=== PATIENT | male | born 1940 | race Hispanic/Latino ===

== ENCOUNTER 2018-08-07 15:30 | Inpatient (IN) | payer OTHER ==
[2018-08-07] MEDS ORDERED: NA CHLORIDE 0.9% 1,000 ML ONE (16:40)
[2018-08-07 16:59] LABS: Protime INR 1.16
--- NOTE | 2018-08-07 17:09 | RAD REPORT ---
EXAM DESCRIPTION: RAD - Chest Single View - 08/07/2018 4:58 pm CLINICAL HISTORY: Cough, shortness of breath, fatigue COMPARISON: December 2014 TECHNIQUE: AP portable chest image was obtained 1633 hours . FINDINGS: No peripheral mass or consolidation. No failure or volume overload. Interstitial markings in the right base are fractionally increased over comparison. Patient has a baseline of mild chronic interstitial lung disease. Heart and vasculature are normal. No measurable pleural effusion and no pneumothorax. No acute bony abnormality seen. No acute aortic findings suspected. IMPRESSION: Mild prominence of the interstitial markings in the right base greater than baseline pat tern. Findings are suspicious for a very early interstitial infiltrate.
[2018-08-07 17:10] LABS: Absolute Lymphocytes (CBC) 0.6 K/uL (0.7-4.9); Absolute Monocytes 0.9 K/uL (0.1-1.3); Absolute Neutrophil 10.8 K/uL (1.8-8.0); Basophils % 0.2 % (0-1.3); Hematocrit 40.9 % (39.6-49.0); Lymphocytes % 5.1 % (15.3-44.8); MPV 8.3 fL (7.6-11.3); RBC Red Blood Cell Count 4.42 M/uL (4.33-5.43)
[2018-08-07 17:20] LABS: ALT/SGPT 29 U/L (12-78); AST/SGOT 19 U/L (15-37); Albumin 3.9 g/dL (3.4-5.0); Alkaline Phosphatase 137 U/L (45-117); BUN Blood Urea Nitrogen 23 mg/dL (7-18); Bicarbonate 26 mmol/L (21-32); Bilirubin Direct 0.2 mg/dL (0-0.2); Bilirubin Total 0.9 mg/dL (0.2-1.0); Glucose Level 117 mg/dL (74-106); Lipase 35 U/L (73-393); Magnesium 2.3 mg/dL (1.8-2.4); NT PRO-BNP 674 pg/mL (<450); Potassium 4.1 mmol/L (3.5-5.1); Protein, Total 7.5 g/dL (6.4-8.2); Sodium Level 140 mmol/L (136-145); Troponin (Emerg Dept Use Only) < 0.02 ng/mL (0.0-0.045)
--- NOTE | 2018-08-07 17:33 | ER ---
Nurse's Notes [facility] Name: Kevin Padron Age: 78 yrs Sex: Male : 1940 Arrival Date: 08/07/2018 Time: 15:37 Bed 27 Private MD: Diagnosis: Weakness;Fever, unspecified;Pneumonia due to other specified bacteria;Dementia in other diseases classified elsewhere Presentation: 08/07 16:14 Presenting complaint: Child states: "He didn't want to get up this morning and he's ph been really tired and weak all day." Reports hx of dementia states that pt is usually ambulatory and would not walk today, also reports vomiting and fever, denies diarrhea. Transition of care: patient was not received from another setting of care. Onset of symptoms was August 07, 2018. Risk Assessment: Do you want to hurt yourself or someone else? Patient reports no desire to harm self or others. Care prior to arrival: None. 16:14 Method Of Arrival: Wheelchair ph 16:14 Acuity: LEE 3 ph 20:00 Initial Sepsis Screen: Does the patient meet any 2 criteria? No. Patient's initial mg2 sepsis screen is negative. Does the patient have a suspected source of infection? No. Patient's initial sepsis screen is negative. Historical: - Allergies: 16:08 No Known Allergies; ph - PMHx: 16:08 Alzheimers; ph - PSHx: 16:08 Knee surgery; ph - Immunization history:: Adult Immunizations unknown. - Social history:: Smoking status: Patient/guardian denies using tobacco. - Ebola Screening: : No symptoms or risks identified at this time. - Family history:: not pertinent. Screenin:00 Abuse screen: Denies threats or abuse. Nutritional screening: No deficits noted. tl3 Tuberculosis screening: No symptoms or risk factors identified. Fall Risk Secondary diagnosis (15 points) Alzheimer's. Assessment: 17:00 General: Appears slender, well developed, well nourished, Behavior is calm, restless. tl3 Pain: Unable to use pain scale. Does not appear to understand pain scale. Neuro: Level of Consciousness is awake, alert, Oriented to person. Cardiovascular: Patient's skin is warm and dry. Respiratory: Airway is patent Respiratory effort is even, unlabored, Respiratory pattern is regular, symmetrical. GI: Abdomen is round Parent/caregiver reports the patient having diarrhea, vomiting. : No signs and/or symptoms were reported regarding the genitourinary system. EENT: No signs and/or symptoms were reported regarding the EENT system. Derm: No signs and/or symptoms reported regarding the dermatologic system. Musculoskeletal: No signs and/or symptoms reported regarding the musculoskeletal system. 18:16 Reassessment: No changes from previously documented assessment. Patient and/or family tl3 updated on plan of care and expected duration. Pain level reassessed. Patient is alert, oriented x 3, equal unlabored respirations, skin warm/dry/pink. family report pt is acting like himself now, moving all about. Vital Signs: 16:08 BP 108 / 68; Pulse 86; Resp 16; Temp 98.1; Pulse Ox 99% on R/A; ph 18:16 BP 124 / 78; Pulse 80; Resp 18; Pulse Ox 100% on R/A; tl3 19:29 BP 132 / 53; Pulse 74; Resp 18; Temp 98.5(A); Pulse Ox 99% on R/A; Pain 0/10; mg2 ED Course: 15:37 Patient arrived in ED. mr 16:08 Arm band placed on. ph 16:10 Rahul Wolfe MD is Attending Physician. celia 16:16 Triage completed. ph 16:37 XRAY Chest (1 view) In Process Unspecified. EDMS 16:50 EKG done, by engine test cell technician. reviewed by Rahul Wolfe MD. sm3 17:00 Patient has correct armband on for positive identification. Placed in gown. Bed in low tl3 position. Adult w/ patient. Pulse ox on. NIBP on. 17:00 No provider procedures requiring assistance completed. tl3 17:05 Inserted saline lock: 20 gauge in right forearm, using aseptic technique. Blood mg2 collected. 17:31 Leilani Vidales MD is Hospitalizing Provider. celia 18:10 Ilene Feliciano RN is Primary Nurse. tl3 19:59 Patient admitted, IV remains in place. mg2 Administered Medications: 16:53 Drug: NS 0.9% 1000 ml Route: IV; Rate: 125 ml/hr; Site: right forearm; mg2 19:19 Follow up: Response: No adverse reaction; IV Status: Infusion continued upon admission mg2 17:20 CANCELLED (Duplicate Order): Cefepime 1 grams IVPB at 200 ml/hr once over 30 mins; (mix celia in NS 100 mL) 18:16 Drug: Zosyn 3.375 grams Route: IVPB; Infused Over: 60 mins; Site: right forearm; tl3 Delivery: Primary tubing; 19:19 Follow up: Response: No adverse reaction; IV Status: Completed infusion mg2 Outcome: 17:32 Decision to Hospitalize by Provider. celia 20:00 Admitted to Tele accompanied by tech, via stretcher, room 403, with chart, Report mg2 called to KAVYA Cavazos 20:00 Condition: good 20:00 Instructed on the need for admit, Demonstrated understanding of instructions. 20:11 Patient left the ED. tl3 Signatures: Dispatcher [employer] Rahul Harris MD MD cha Rivera, Cherelle Verma RN RN Ilene Feliciano RN RN tl3 Mahesh Negrete RN RN [facility] [place] Aspen Mendez 3
--- NOTE | 2018-08-07 17:33 | EDPHYS ---
Physician Documentation [facility] Name: Kevin Padron Age: 78 yrs Sex: Male : 1940 Arrival Date: 08/07/2018 Time: 15:37 Bed 27 Private MD: ED Physician Rahul Wolfe HPI: 08/07 17:14 This 78 yrs old Male presents to ER via Wheelchair with complaints of Fever, celia Vomiting. 17:14 The patient reports fever, that was measured at 100 degrees Fahrenheit. Onset: The celia symptoms/episode began/occurred 2 day(s) ago. Modifying factors: there are no obvious modifying factors. Associated signs and symptoms: Pertinent positives:. Severity of symptoms: At their worst the symptoms were mild in the emergency department the symptoms are unchanged. The patient has not experienced similar symptoms in the past. Historical: - Allergies: 16:08 No Known Allergies; ph - PMHx: 16:08 Alzheimers; ph - PSHx: 16:08 Knee surgery; ph - Immunization history:: Adult Immunizations unknown. - Social history:: Smoking status: Patient/guardian denies using tobacco. - Ebola Screening: : No symptoms or risks identified at this time. - Family history:: not pertinent. ROS: 17:14 Eyes: Negative for injury, pain, redness, and discharge, Neck: Negative for injury, celia pain, and swelling, Cardiovascular: Negative for chest pain, palpitations, and edema, Back: Negative for injury and pain, : Negative for injury, bleeding, discharge, and swelling, MS/Extremity: Negative for injury and deformity, Skin: Negative for injury, rash, and discoloration, Psych: Negative for depression, anxiety, suicide ideation, homicidal ideation, and hallucinations, Allergy/Immunology: Negative for hives, rash, and allergies, Endocrine: Negative for neck swelling, polydipsia, polyuria, polyphagia, and marked weight changes, Hematologic/Lymphatic: Negative for swollen nodes, abnormal bleeding, and unusual bruising. 17:14 Constitutional: Positive for fever. 17:14 Respiratory: Positive for cough. 17:14 Abdomen/GI: Positive for nausea and vomiting. 17:14 Neuro: Positive for altered mental status, gait disturbance. Exam: 17:14 Head/Face: Normocephalic, atraumatic. Eyes: Pupils equal round and reactive to light, celia extra-ocular motions intact. Lids and lashes normal. Conjunctiva and sclera are non-icteric and not injected. Cornea within normal limits. Periorbital areas with no swelling, redness, or edema. ENT: Nares patent. No nasal discharge, no septal abnormalities noted. Tympanic membranes are normal and external auditory canals are clear. Oropharynx with no redness, swelling, or masses, exudates, or evidence of obstruction, uvula midline. Mucous membranes moist. Neck: Trachea midline, no thyromegaly or masses palpated, and no cervical lymphadenopathy. Supple, full range of motion without nuchal rigidity, or vertebral point tenderness. No Meningismus. Chest/axilla: Normal chest wall appearance and motion. Nontender with no deformity. No lesions are appreciated. Cardiovascular: Regular rate and rhythm with a normal S1 and S2. No gallops, murmurs, or rubs. Normal PMI, no JVD. No pulse deficits. Respiratory: Lungs have equal breath sounds bilaterally, clear to auscultation and percussion. No rales, rhonchi or wheezes noted. No increased work of breathing, no retractions or nasal flaring. Abdomen/GI: Soft, non-tender, with normal bowel sounds. No distension or tympany. No guarding or rebound. No evidence of tenderness throughout. Back: No spinal tenderness. No costovertebral tenderness. Full range of motion. Skin: Warm, dry with normal turgor. Normal color with no rashes, no lesions, and no evidence of cellulitis. MS/ Extremity: Pulses equal, no cyanosis. Neurovascular intact. Full, normal range of motion. Psych: Awake, alert, with orientation to person, place and time. Behavior, mood, and affect are within normal limits. 17:14 Constitutional: The patient appears febrile. 17:14 Respiratory: the patient does not display signs of respiratory distress, Respirations: normal, Breath sounds: rhonchi, that are mild, are scattered. 17:14 Neuro: Orientation: unable to test, Mentation: confused, Memory: unable to test, Cerebellar function: unable to test, Sensation: unable to test, Gait: not tested. seizure activity, is not displayed by the patient. Vital Signs: 16:08 BP 108 / 68; Pulse 86; Resp 16; Temp 98.1; Pulse Ox 99% on R/A; ph 18:16 BP 124 / 78; Pulse 80; Resp 18; Pulse Ox 100% on R/A; tl3 19:29 BP 132 / 53; Pulse 74; Resp 18; Temp 98.5(A); Pulse Ox 99% on R/A; Pain 0/10; mg2 MDM: 16:10 Patient medically screened. [facility] 17:14 Data reviewed: vital signs, nurses notes, lab test result(s), EKG, radiologic studies, celia plain films. 08/07 16:12 Order name: Basic Metabolic Panel; Complete Time: 17:30 [facility] 08/07 16:12 Order name: CBC with Diff [facility] 08/07 16:12 Order name: LFT's; Complete Time: 17:30 [facility] 08/07 16:12 Order name: Magnesium; Complete Time: 17:30 [facility] 08/07 16:12 Order name: NT PRO-BNP; Complete Time: 17:30 [facility] 08/07 16:12 Order name: PT-INR; Complete Time: 17:30 [facility] 08/07 16:12 Order name: Troponin (emerg Dept Use Only); Complete Time: 17:30 [facility] 08/07 16:12 Order name: Lipase; Complete Time: 17:30 [facility] 08/07 16:12 Order name: Blood Culture Adult (2) [facility] 08/07 16:12 Order name: Urine Culture [facility] 08/07 16:12 Order name: Procalcitonin; Complete Time: 17:30 [facility] 08/07 16:12 Order name: Lactate; Complete Time: 17:30 [facility] 08/07 17:13 Order name: Urine Dipstick--Ancillary (enter results) 08/07 17:14 Order name: Flu [facility] 08/07 16:12 Order name: XRAY Chest (1 view); Complete Time: 17:30 [facility] 08/07 16:12 Order name: EKG; Complete Time: 16:13 [facility] 08/07 16:12 Order name: Cardiac monitoring; Complete Time: 16:53 [facility] 08/07 16:12 Order name: EKG - Nurse/Tech; Complete Time: 16:53 [facility] 08/07 16:12 Order name: IV Saline Lock; Complete Time: 16:53 [facility] 08/07 16:12 Order name: Labs collected and sent; Complete Time: 16:53 [facility] 08/07 16:12 Order name: O2 Per Protocol; Complete Time: 16:53 [facility] 08/07 16:12 Order name: O2 Sat Monitoring; Complete Time: 16:53 [facility] 08/07 16:12 Order name: Urine Dipstick-Ancillary (obtain specimen); Complete Time: 17:05 [facility] 08/07 17:19 Order name: CBC Smear Scan EDMS Administered Medications: 16:53 Drug: NS 0.9% 1000 ml Route: IV; Rate: 125 ml/hr; Site: right forearm; mg2 19:19 Follow up: Response: No adverse reaction; IV Status: Infusion continued upon admission mg2 17:20 CANCELLED (Duplicate Order): Cefepime 1 grams IVPB at 200 ml/hr once over 30 mins; (mix celia in NS 100 mL) 18:16 Drug: Zosyn 3.375 grams Route: IVPB; Infused Over: 60 mins; Site: right forearm; tl3 Delivery: Primary tubing; 19:19 Follow up: Response: No adverse reaction; IV Status: Completed infusion mg2 Disposition: 08/07/18 17:32 Hospitalization ordered by Leilani Vidales for Inpatient Admission. Preliminary diagnosis are Weakness, Fever, unspecified, Pneumonia due to other specified bacteria, Dementia in other diseases classified elsewhere. - Bed requested for Telemetry/MedSurg (Inpatient). - Status is Inpatient Admission. tl3 - Condition is Fair. - Problem is new. - Symptoms have improved. UTI on Admission? No Signatures: Dispatcher [employer] EDMS Jane Irving Corey, MD MD cha Hall, Patricia, RN RN Ilene Feliciano RN RN tl3 Mahesh Negrete RN RN mg2 Corrections: (The following items were deleted from the chart) 17:20 17:14 Cefepime 1 grams IVPB at 200 ml/hr once over 30 mins; (mix in NS 100 mL) ordered. [facility] 18:54 17:32 Hospitalization Ordered by Leilani Vidales MD for Inpatient Admission. Preliminary bd diagnosis is Weakness; Fever, unspecified; Pneumonia due to other specified bacteria; Dementia in other diseases classified elsewhere. Bed requested for Telemetry/MedSurg (Inpatient). Status is Inpatient Admission. Condition is Fair. Problem is new. Symptoms have improved. UTI on Admission? No. [facility] 20:11 18:54 08/07/2018 17:32 Hospitalization Ordered by Leilani Vidales MD for Inpatient tl3 Admission. Preliminary diagnosis is Weakness; Fever, unspecified; Pneumonia due to other specified bacteria; Dementia in other diseases classified elsewhere. Bed requested for Telemetry/MedSurg (Inpatient). Status is Inpatient Admission. Condition is Fair. Problem is new. Symptoms have improved. UTI on Admission? No. bd
[2018-08-07] MEDS ORDERED: PIPER/TAZO/NS 3.375gm 3.375 GM/100 ML BAG ONE (18:19)
[2018-08-07 18:30] LABS: Urine Blood TRACE (NEG); Urine Glucose NEGATIVE (NEG); Urine Protein NEGATIVE (NEG); Urine pH 7.5 (5.0-7.0)
[2018-08-07 18:35] LABS: Blood Morphology Comment NOT SEEN (NOT SEEN); Platelet Estimate ADEQ; Urine White Blood Cell Casts OK
[2018-08-07 20:38] VITALS: BMI 20.7
[2018-08-07] MEDS ORDERED: ONDANSETRON 4 MG/2 ML VIAL IV PRN (21:00)
[2018-08-07] MEDS ORDERED: LORazepam 2 MG/ML VIAL IV ONE (21:33)
[2018-08-07 22:19] LABS: Albumin 3.7 g/dL (3.4-5.0); Bilirubin Total 1.5 mg/dL (0.2-1.0); Potassium 3.8 mmol/L (3.5-5.1); Protein, Total 7.1 g/dL (6.4-8.2)
[2018-08-07] MEDS ORDERED: POTASSIUM CL SA 10 MEQ TAB PO ONE (22:41)
[2018-08-08 05:31] LABS: Absolute Lymphocytes (CBC) 0.7 K/uL (0.7-4.9); Absolute Monocytes 0.8 K/uL (0.1-1.3); Absolute Neutrophil 8.6 K/uL (1.8-8.0); Basophils % 0.4 % (0-1.3); Hematocrit 38.8 % (39.6-49.0); Lymphocytes % 6.7 % (15.3-44.8); MPV 8.6 fL (7.6-11.3); Monocytes % 7.8 % (3.3-12.3); RBC Red Blood Cell Count 4.31 M/uL (4.33-5.43)
[2018-08-08 05:42] LABS: Potassium 3.4 mmol/L (3.5-5.1)
[2018-08-08] MEDS: NA CHLORIDE 0.9% 1,000 ML IV SCH ×3 (06:45→22:10)
[2018-08-08] MEDS: KCL 20 MEQ/100 mL IVPB 20 MEQ/100 ML BAG IV SCH ×2 (06:46→09:06)
[2018-08-08] MEDS ORDERED: NA CHLORIDE 0.9% 1,000 ML ONE (06:50)
--- NOTE | 2018-08-08 06:57 | EKG ---
Test Date: 2018-08-07 Test Time: 16:46:55 Business Services Sales Agent: KENROY MEASUREMENT RESULTS: Intervals: Rate: 78 AR: 142 QRSD: 74 QT: 406 QTc: 462 [place]: P: 78 AR: 142 QRS: 73 T: 55 INTERPRETIVE STATEMENTS: Normal sinus rhythm ST abnormality, possible digitalis effect Abnormal ECG Compared to ECG 04/18/2017 19:39:13 ST (T wave) deviation now present Sinus bradycardia no longer present Electronically Signed On 08-08-18 06:56:05 SAP ARIBA CONSULTANT by Cr Bolaños
[2018-08-08] MEDS ORDERED: PNEUMOCOCCAL VACCINE 0.5 ML IMVAC ONE (08:00)
[2018-08-08] MEDS ORDERED: INFLUENZA VACCINE (for 3y+) 0.5 ML DOSE IMVAC ONE (08:00)
--- NOTE | 2018-08-08 08:44 | RAD REPORT ---
EXAM DESCRIPTION: RAD - Chest Single View - 08/08/2018 8:32 am CLINICAL HISTORY: PNA Chest pain. COMPARISON: Chest Single View dated 08/07/2018; ABDOMEN ACUTE SERIES dated 12/30/2014; CHEST PA AND LA T 2 VIEW dated 03/14/2011; CHEST PA AND LAT 2 VIEW dated 07/13/2008 FINDINGS: Portable technique limits examination quality. The lungs are grossly clear. The heart is normal in size. No displaced fractures. IMPRESSION: No acute intrathoracic process suspected.
[2018-08-08] MEDS: ENOXAPARIN 40 MG/0.4 ML SQ SCH (09:06)
--- NOTE | 2018-08-08 12:16 | P.HP ---
Certification for Inpatient Patient admitted to: Inpatient With expected LOS: >2 Midnights Patient will require the following post-hospital care: None Practitioner: I am a practitioner with admitting privileges, knowledge of patient current condition, hospital course, and medical plan of care. Services: Services provided to patient in accordance with Admission requirements found in Title 42 Section 412.3 of the Code of Federal Regulations Patient History Date of Service: 08/07/18 Reason for admission: SHORTNESS OF BREATH; FEVER History of Present Illness: Patient is a 78-year-old gentleman who came into the hospital with altered mentation. Patient does have dementia however physically he is able to do just about anything he has in the past. However, as far as his mentation he is very forgetful and does not even know his current family members. The family became concerned when physically he was not doing what he normally does. He was having vomiting and he was running fevers. It appeared he may have a stomach virus. He was getting physically more ill so they brought him into the hospital for further evaluation. Patient is not able to really communicate with what is wrong so the family has to guess a lot of times. They were not sure what was going on so they brought him into the emergency room. In the emergency room his workup had a questionable pneumonia. he did have a positive flu test. He has no white count but he does have a fever. His procalcitonin is negative. We will monitor him very closely and hydrate him gently and start him on Tamiflu. Allergies No Known Drug Allergies Allergy (Verified 08/07/18 21:14) Unknown Home Medications: Melatonin 15 mg PO BEDTIME 08/07/18 - Past Medical/Surgical History Has patient received pneumonia vaccine in the past: No Diabetic: No -: Alzheimer's dementia -: Total knee replacement - Family History Father History Unknown: Yes Sister Notes: alzheimers - Social History Smoking Status: Former smoker Alcohol use: No CD- Drugs: No Place of Residence: Home Review of Systems 10-point ROS is otherwise unremarkable Physical Examination - Vital Signs Temperature: 100.7 F Blood Pressure: 149/85 Pulse: 65 Respirations: 20 Pulse Ox (%): 93 - Physical Exam General: Alert, In no apparent distress, Delirious, Other (dementia) HEENT: Atraumatic, PERRLA, Mucous membr. moist/pink, EOMI, Sclerae nonicteric Neck: Supple, 2+ carotid pulse no bruit, No LAD, Without JVD or thyroid abnormality Respiratory: Diminished, Rhonchi/gurgles Cardiovascular: Regular rate/rhythm, Normal S1 S2, Systolic murmur Gastrointestinal: Normal bowel sounds, Soft and benign, Non-distended, No tenderness Musculoskeletal: No clubbing, No swelling, No tenderness Integumentary: No rashes Neurological: Normal speech, Normal tone, Sensation intact, Cranial nerves 3-12 intact, Normal affect, Abnormal strength Lymphatics: No axilla or inguinal lymphadenopathy - Studies Laboratory Data (last 24 hrs) 08/07/18 16:30: PT 13.6 H, INR 1.16 08/07/18 16:30: WBC 12.3 H, Hgb 13.6, Hct 40.9, Plt Count 225 08/07/18 16:30: Sodium 140, Potassium 4.1, BUN 23 H, Creatinine 0.88, Glucose 117 H, Magnesium 2.3, Total Bilirubin 0.9, AST 19, ALT 29, Alkaline Phosphatase 137 H, Lipase 35 L Assessment & Plan - Problems (Diagnosis) (1) Influenza A with pneumonia Current Visit: Yes Status: Acute (2) Fever Current Visit: Yes Status: Acute (3) Nausea Current Visit: Yes Status: Acute (4) Alzheimer's dementia Current Visit: Yes Status: Acute - Plan Plan: 1. Continue with antivirals 2. Repeat chest x-ray in AM 3. Continue with nebs as needed 4. O2 per protocol 5. Respiratory isolation 6. Continue with gentle hydration 7. Repeat labs including CBC and renal function in a.m. 8. GI and DVT prophylaxis Discharge Plan: Home Plan to discharge in: Greater than 2 days - Advance Directives Does patient have a Living Will: No Does patient have a Durable POA for Healthcare: No - Code Status/Comfort Care Code Status Assessed: Yes Code Status: Full Code Critical Care: No Time Spent Managing PTS Care (In Minutes): 45
[2018-08-08] MEDS: OSELTAMIVIR 75 MG CAP PO SCH ×2 (12:44→22:11)
[2018-08-08] MEDS: ACETAMINOPHEN 325 MG TABLET PO PRN (17:33)
--- NOTE | 2018-08-08 18:02 | P.PN ---
Subjective Date of Service: 08/08/18 Chief Complaint: SHORTNESS OF BREATH; FEVER Subjective: No C/O voiced Review of Systems 10-point ROS is otherwise unremarkable Physical Examination - Vital Signs Temperature: 100.7 F Blood Pressure: 149/85 Pulse: 65 Respirations: 20 Pulse Ox (%): 93 - Physical Exam General: Alert, In no apparent distress HEENT: Atraumatic, PERRLA, EOMI Neck: Supple, JVD not distended Respiratory: Clear to auscultation bilaterally, Normal air movement Cardiovascular: Regular rate/rhythm, Normal S1 S2 Gastrointestinal: Normal bowel sounds, No tenderness Musculoskeletal: No tenderness Integumentary: No rashes Neurological: Normal speech, Normal tone, Normal affect Lymphatics: No axilla or inguinal lymphadenopathy Assessment And Plan - Plan Influenza A with pneumonia Fever Nausea Alzheimer's dementia 1. Continue with antivirals 2. Continue with nebs as needed 3. O2 per protocol 4. Respiratory isolation 5. Continue with gentle hydration 6. Repeat labs including CBC and renal function in a.m. 7. GI and DVT prophylaxis
[2018-08-08] MEDS ORDERED: KCL 20 MEQ/100 mL IVPB 20 MEQ/100 ML BAG IV SCH (19:00)
[2018-08-09] MEDS: NA CHLORIDE 0.9% 1,000 ML IV SCH ×3 (03:00→19:48)
[2018-08-09 04:26] LABS: BUN Blood Urea Nitrogen 21 mg/dL (7-18); Bicarbonate 23 mmol/L (21-32); Glucose Level 128 mg/dL (74-106); Potassium 3.7 mmol/L (3.5-5.1); Sodium Level 139 mmol/L (136-145)
[2018-08-09] MEDS: ACETAMINOPHEN 325 MG TABLET PO PRN ×2 (05:37→10:54)
[2018-08-09] MEDS ORDERED: KCL 20 MEQ/100 mL IVPB 20 MEQ/100 ML BAG IV SCH (08:00)
[2018-08-09] MEDS: ENOXAPARIN 40 MG/0.4 ML SQ SCH (09:11)
[2018-08-09] MEDS: OSELTAMIVIR 75 MG CAP PO SCH ×2 (09:11→20:00)
--- NOTE | 2018-08-09 14:57 | P.PN ---
Subjective Date of Service: 08/09/18 Chief Complaint: SHORTNESS OF BREATH; FEVER Subjective: No new changes Patient seen and examined at bedside. Daughter at bedside. Chart reviewed and case discussed with nursing staff. Patient nonverbal at baseline. Seems to be more drowsy this morning. Per daughter, he does have dementia. He does not see a doctor for his dementia, is on no medications for dementia. Review of Systems is unable to be obtained Physical Examination - Vital Signs Temperature: 99.2 F Blood Pressure: 108/53 Pulse: 73 Respirations: 20 Pulse Ox (%): 94 - Physical Exam General: In no apparent distress, Confused, Other (Very sleepy, grimaces with pain, not really want to open his eyes) HEENT: Atraumatic, PERRLA, EOMI Neck: Supple, JVD not distended Respiratory: Clear to auscultation bilaterally, Normal air movement Cardiovascular: Regular rate/rhythm, Normal S1 S2 Gastrointestinal: Normal bowel sounds, No tenderness Musculoskeletal: No tenderness Integumentary: No rashes Neurological: Normal speech, Normal tone, Normal affect Lymphatics: No axilla or inguinal lymphadenopathy Assessment And Plan - Plan Influenza A with pneumonia Fever Nausea Alzheimer's dementia, advanced Positive preliminary blood cultures 1. Continue with antivirals. Fever curve improving 2. Continue with nebs as needed 3. O2 per protocol 4. Respiratory isolation 5. Continue with gentle hydration 6. Repeat labs including CBC and renal function in a.m. 7. Follow up blood cultures 8. If condition is not improved, may proceed with MRI/per protocol. Sleepiness this likely secondary to fever/influenza on top of his underlying dementia. Will continue to monitor. 9. The patient may need outpatient follow up for dementia. 10. GI and DVT prophylaxis
[2018-08-10] MEDS: NA CHLORIDE 0.9% 1,000 ML IV SCH ×2 (03:49→17:02)
[2018-08-10 06:45] LABS: BUN Blood Urea Nitrogen 11 mg/dL (7-18); Bicarbonate 23 mmol/L (21-32); Glucose Level 128 mg/dL (74-106); Potassium 3.4 mmol/L (3.5-5.1); Sodium Level 142 mmol/L (136-145)
[2018-08-10] MEDS: ENOXAPARIN 40 MG/0.4 ML SQ SCH (08:46)
[2018-08-10] MEDS: OSELTAMIVIR 75 MG CAP PO SCH ×2 (08:47→21:29)
[2018-08-10] MEDS: KCL 20 MEQ/100 mL IVPB 20 MEQ/100 ML BAG IV SCH ×2 (09:30→11:52)
--- NOTE | 2018-08-10 11:48 | P.PN ---
Subjective Date of Service: 08/10/18 Primary Care Provider: Dr. Gino de jesus Chief Complaint: SHORTNESS OF BREATH; FEVER Subjective: Improving Patient seen and examined at bedside. Daughter at bedside. Chart reviewed and case discussed with nursing staff. Patient nonverbal at baseline. Seems to be more closer to baseline. Per daughter, he does have dementia. He does not see a doctor for his dementia, is on no medications for dementia. Review of Systems 10-point ROS is otherwise unremarkable Physical Examination - Vital Signs Temperature: 99.4 F Blood Pressure: 135/63 Pulse: 70 Respirations: 16 Pulse Ox (%): 96 - Physical Exam General: In no apparent distress, Demented HEENT: Atraumatic, PERRLA, EOMI Neck: Supple, JVD not distended Respiratory: Clear to auscultation bilaterally, Normal air movement Cardiovascular: Regular rate/rhythm, Normal S1 S2 Gastrointestinal: Normal bowel sounds, No tenderness Musculoskeletal: No tenderness Integumentary: No rashes Neurological: Normal speech, Normal tone, Normal affect Lymphatics: No axilla or inguinal lymphadenopathy Assessment And Plan - Plan Influenza A with pneumonia Fever Nausea Alzheimer's dementia, advanced Positive preliminary blood cultures 1. Continue with antivirals. Fever curve improving 2. Continue with nebs as needed 3. O2 per protocol 4. Respiratory isolation 5. Continue with gentle hydration 6. Follow up blood cultures. NG24 hrs 8. improved mentation. If condition is not improved, may proceed with MRI/per protocol. Sleepiness likely secondary to fever/influenza on top of his underlying dementia. Will continue to monitor. 9. The patient may need outpatient follow up for dementia. 10. GI and DVT prophylaxis
[2018-08-10] MEDS: ACETAMINOPHEN 325 MG TABLET PO PRN ×2 (14:45→21:29)
[2018-08-10] MEDS ORDERED: POTASSIUM 25 MEQ EFFERV TAB PO ONE (20:54)
[2018-08-11] MEDS: NA CHLORIDE 0.9% 1,000 ML IV SCH ×4 (02:54→21:15)
[2018-08-11 06:53] LABS: BUN Blood Urea Nitrogen 9 mg/dL (7-18); Bicarbonate 26 mmol/L (21-32); Glucose Level 97 mg/dL (74-106); Potassium 3.8 mmol/L (3.5-5.1); Sodium Level 142 mmol/L (136-145)
[2018-08-11] MEDS: OSELTAMIVIR 75 MG CAP PO SCH ×2 (08:52→21:13)
[2018-08-11] MEDS: ENOXAPARIN 40 MG/0.4 ML SQ SCH (08:53)
[2018-08-11] MEDS ORDERED: POTASSIUM 25 MEQ EFFERV TAB PO ONE (09:00)
--- NOTE | 2018-08-11 10:21 | P.PN ---
Subjective Date of Service: 08/11/18 Primary Care Provider: Dr. Gino de jesus Chief Complaint: SHORTNESS OF BREATH; FEVER Subjective: No C/O voiced, Improving Patient seen and examined at bedside. Daughter at bedside. Chart reviewed and case discussed with nursing staff. Patient nonverbal at baseline. Almost back to baseline. Per daughter, he does have dementia. He does not see a doctor for his dementia, is on no medications for dementia. Review of Systems 10-point ROS is otherwise unremarkable Physical Examination - Vital Signs Temperature: 99.2 F Blood Pressure: 140/65 Pulse: 64 Respirations: 20 Pulse Ox (%): 96 - Physical Exam General: In no apparent distress, Demented HEENT: Atraumatic, PERRLA, EOMI Neck: Supple, JVD not distended Respiratory: Clear to auscultation bilaterally, Normal air movement Cardiovascular: Regular rate/rhythm, Normal S1 S2 Gastrointestinal: Normal bowel sounds, No tenderness Musculoskeletal: No tenderness Integumentary: No rashes Neurological: Normal speech, Normal tone, Normal affect Lymphatics: No axilla or inguinal lymphadenopathy - Studies Microbiology Data (last 24 hrs): 08/07/18 17:08 Clean Catch Urine Ralston Count - Final >100,000 CFU/ML. 08/07/18 17:08 Clean Catch Urine - Final Strep Bovis Assessment And Plan - Current Problems (Diagnosis) (1) UTI (urinary tract infection) Current Visit: Yes Status: Acute (2) Alzheimer's dementia Current Visit: Yes Status: Chronic Qualifiers: Alzheimer's disease onset: unspecified onset Dementia behavioral disturbance: without behavioral disturbance Qualified Code(s): G30.9 - Alzheimer's disease, unspecified; F02.80 - Dementia in other diseases classified elsewhere without behavioral disturbance (3) Fever Current Visit: Yes Status: Acute Qualifiers: Fever type: unspecified Qualified Code(s): R50.9 - Fever, unspecified (4) Influenza A with pneumonia Current Visit: Yes Status: Acute - Plan Influenza A with pneumonia Fever Nausea Alzheimer's dementia, advanced Positive preliminary blood cultures Urinary Tract infection, Strep Bovis 1. Continue with antivirals. Fever curve improving 2. Continue with nebs as needed 3. O2 per protocol 4. Respiratory isolation 5. Continue with gentle hydration 6. Follow up blood cultures. NG24 hrs 8. Mentation back to baseline, per family. Sleepiness likely secondary to fever/ influenza on top of his underlying dementia. Will continue to monitor. 9. The patient may need outpatient follow up for dementia. 10. Levaquin PO for Strep Bovis UTI. 11. GI and DVT prophylaxis Disposition: Possible discharge home in the next 24-48 hours, pending clinical improvement. Discharge Plan: Home Plan to discharge in: 24 Hours
[2018-08-11] MEDS: levoFLOXacin 500 MG TAB PO SCH (12:17)
[2018-08-11] MEDS: ACETAMINOPHEN 325 MG TABLET PO PRN (15:26)
[2018-08-12] MEDS: NA CHLORIDE 0.9% 1,000 ML IV SCH ×3 (00:43→11:00)
[2018-08-12 07:25] LABS: BUN Blood Urea Nitrogen 10 mg/dL (7-18); Bicarbonate 27 mmol/L (21-32); Glucose Level 97 mg/dL (74-106); Potassium 3.8 mmol/L (3.5-5.1); Sodium Level 141 mmol/L (136-145)
[2018-08-12 08:59] VITALS: TEMP 98.6
[2018-08-12] MEDS: ENOXAPARIN 40 MG/0.4 ML SQ SCH (09:00)
[2018-08-12] MEDS: OSELTAMIVIR 75 MG CAP PO SCH (09:01)
[2018-08-12] MEDS: levoFLOXacin 500 MG TAB PO SCH (09:01)
--- NOTE | 2018-08-12 12:11 | P.DS ---
Admission Date: 08/07/18 Discharge Date: 08/12/18 Primary Care Provider: Dr. Gino de jesus Disposition: ROUTINE DISCHARGE Discharge Condition: FAIR Reason for Admission: SHORTNESS OF BREATH; FEVER - Problems (1) UTI (urinary tract infection) Current Visit: Yes Status: Acute (2) Alzheimer's dementia Current Visit: Yes Status: Chronic Qualifiers: Alzheimer's disease onset: unspecified onset Dementia behavioral disturbance: without behavioral disturbance Qualified Code(s): G30.9 - Alzheimer's disease, unspecified; F02.80 - Dementia in other diseases classified elsewhere without behavioral disturbance (3) Fever Current Visit: Yes Status: Acute Qualifiers: Fever type: unspecified Qualified Code(s): R50.9 - Fever, unspecified (4) Influenza A with pneumonia Current Visit: Yes Status: Acute Brief History of Present Illness: Patient is a 78-year-old gentleman who came into the hospital with altered mentation. Patient does have dementia however physically he is able to do just about anything he has in the past. However, as far as his mentation he is very forgetful and does not even know his current family members. The family became concerned when physically he was not doing what he normally does. He was having vomiting and he was running fevers. It appeared he may have a stomach virus. He was getting physically more ill so they brought him into the hospital for further evaluation. Patient is not able to really communicate with what is wrong so the family has to guess a lot of times. They were not sure what was going on so they brought him into the emergency room. In the emergency room his workup had a questionable pneumonia. he did have a positive flu test. He has no white count but he does have a fever. His procalcitonin is negative. We will monitor him very closely and hydrate him gently and start him on Tamiflu. Hospital Course: Influenza A with pneumonia Fever Nausea Alzheimer's dementia, advanced Positive preliminary blood cultures Urinary Tract infection, Strep Bovis Patient was admitted on the floor with respiratory isolation. He was Started on Tamiflu and IV fluids. He was provided with nebulizers as needed along with oxygen as needed. He was weaned off the oxygen. His fever curve improved. Throughout the stay, his urine cultures did grow strep bovis and he was started on IV Levaquin. His fever curve improved, he was afebrile for 24+ hr. He returned to baseline mentation vargas, confirmed by the son and daughter. He was discharged on 1 dose of Tamiflu, which is was left to complete his course of Tamiflu. He was also discharged on oral Levaquin to complete a 10 day course. For his dementia, at baseline, patient is nonverbal and he sometimes walks and sometimes does not. He lives at home with his , who is a caregiver. Discussed that this may be patient's new baseline, as patient not wanting to walk much here. Physical therapy was consulted, though he does not follow commands, which is his baseline per family. Discussed with daughter and provided options available to them for further help, including the facility and home health. Daughter states that they would like to keep his father at home, per mother's wishes. They would like to care for him at home for now. They stated that they will get a wheelchair so they can take his father around in the wheelchair. Also provided the option of help setting up home health. Daughter stated that she would have to talk to her mother but the mother wants to take care of him at home. Explained to daughter that this is a progressive disease, this may be new baseline and if they would like help down the line they should talk to the primary care physician regarding setting up facility or home health. At the time of discharge, patient was at baseline mentation vargas (nonverbal, though alert, not really mobile). He was hemodynamically stable, his labs were stable. He was afebrile for more than 24 hr. He was also tolerating a regular diet, eating really well. Vital Signs/Physical Exam: Temp Pulse Resp BP Pulse Ox 98.6 F 58 12 144/61 H 94 08/12/18 08:00 08/12/18 08:00 08/12/18 08:00 08/12/18 08:00 08/12/18 04:00 General: Alert, In no apparent distress, Demented, Confused, Other (Non verbal, baseline) HEENT: Atraumatic, PERRLA, EOMI Neck: Supple, JVD not distended Respiratory: Clear to auscultation bilaterally, Normal air movement Cardiovascular: Regular rate/rhythm, Normal S1 S2 Gastrointestinal: Normal bowel sounds, No tenderness Musculoskeletal: No tenderness, Contractures (Chronic) Laboratory Data at Discharge: WBC 10.1 K/uL (4.3-10.9) D 08/08/18 04:44 Hgb 13.6 g/dL (13.6-17.9) 08/08/18 04:44 Hct 38.8 % (39.6-49.0) L 08/08/18 04:44 Plt Count 210 K/uL (152-406) 08/08/18 04:44 PT 13.6 SECONDS (9.5-12.5) H 08/07/18 16:30 INR 1.16 08/07/18 16:30 Sodium 141 mmol/L (136-145) 08/12/18 06:47 Potassium 3.8 mmol/L (3.5-5.1) 08/12/18 06:47 BUN 10 mg/dL (7-18) 08/12/18 06:47 Creatinine 0.58 mg/dL (0.55-1.3) 08/12/18 06:47 Glucose 97 mg/dL (74-106) 08/12/18 06:47 Magnesium 2.0 mg/dL (1.8-2.4) 08/09/18 03:50 Total Bilirubin 1.5 mg/dL (0.2-1.0) H 08/07/18 21:23 AST 15 U/L (15-37) 08/07/18 21:23 ALT 27 U/L (12-78) 08/07/18 21:23 Alkaline Phosphatase 129 U/L (45-117) H 08/07/18 21:23 Lipase 35 U/L (73-393) L 08/07/18 16:30 Home Medications: Melatonin 15 mg PO BEDTIME 08/07/18 Oseltamivir [Tamiflu*] 75 mg PO BID #1 cap 08/12/18 levoFLOXacin [Levaquin*] 500 mg PO DAILY #8 tab 08/12/18 New Medications: levoFLOXacin [Levaquin*] 500 mg PO DAILY #8 tab Oseltamivir [Tamiflu*] 75 mg PO BID #1 cap Patient Discharge Instructions: Please follow up with the primary care physician in 2-3 days. Please return to the emergency room for worsening symptoms Diet: Regular Activity: Ad margaret Time spent managing pt's care (in minutes): 60
[2018-08-12 13:01] VITALS: BP 151/72
[2018-08-12 13:32] VITALS: O2SAT 93
[2018-08-12] MEDS ORDERED: PNEUMOCOCCAL VACCINE 0.5 ML IMVAC ONE (15:00)
[2018-08-12] MEDS ORDERED: INFLUENZA VACCINE (for 3y+) 0.5 ML DOSE IMVAC ONE (15:00)
== END 2018-08-12 16:03 | disposition home or self-care (01) | DRG 194 ==
LOC: ER 15:30 → ERHOLD 18:12 → 4TH 19:52
PROVIDERS: ADMIT Family Medicine; ATTEND Family Medicine
DX: J09.X1 Influenza due to identified novel influenza A virus with pneumonia (principal); N39.0 Urinary tract infection, site not specified; J18.8 Other pneumonia, unspecified organism; Z87.891 Personal history of nicotine dependence; R50.9 Fever, unspecified; G30.9 Alzheimer's disease, unspecified; F02.80 Dementia in other diseases classified elsewhere, unspecified severity, without behavioral disturbance, psychotic disturbance, mood disturbance, and anxiety; B95.4 Other streptococcus as the cause of diseases classified elsewhere
CPT/HCPCS: 36415; 71045; 80048; 80053; 80076; 81003; 82962; 83605; 83690; 83735; 83880; 84132; 84145; 84484; 85025; 85610; 87040; 87077; 87086; 87088; 87186; 87205; 87804; 90670; 93005; 94760; 96361; 96365; 97163; 99285; G0008; G0009; J1650; J2543; J7030; Q2035